=== PATIENT | female | born 1995 | race Caucasian/White ===

== ENCOUNTER 2020-04-06 11:08 | Observation (INO) | payer OTHER, SELFPAY ==
[2020-04-06 11:20] VITALS: BMI 24.1
[2020-04-06 11:25] VITALS: BP 123/78; PULSE 75
[2020-04-06 11:30] VITALS: BP 119/75; PULSE 78
[2020-04-06 12:00] VITALS: BP 118/79; PULSE 90
[2020-04-06 12:15] VITALS: BP 103/66; PULSE 80
[2020-04-06 12:20] VITALS: TEMP 37
[2020-04-06 12:30] VITALS: BP 107/63; PULSE 77
--- NOTE | 2020-04-06 12:50 | OBADM ---
This patient, Sarah George, admitted to the OB room OB Post 116 for observation. Patient/family oriented to hospital policies and general routines including ID bracelet, bed and alarms, visiting hours, pain management, procedures, bathroom and other care routines, personal items, smoking policy, room service/diet, and visiting hours. Patient/Family are encouraged to report perceived risks to care and to ask questions if they do not understand what they are told or what they should do.
--- NOTE | 2020-05-06 12:00 | PM.OBTRLD ---
OB - Triage/Final Diagnosis Final Diagnosis (1) False labor: Code(s): O47.9 - False labor, unspecified Status: Acute
== END 2020-04-06 13:00 | disposition home or self-care (01) ==
PROVIDERS: Admitting Provider Obstetrics & Gynecology; PCP Family Medicine; Visit Provider Obstetrics & Gynecology
DX: O47.1 False labor at or after 37 completed weeks of gestation (principal); Z3A.37 37 weeks gestation of pregnancy
CPT/HCPCS: G0378; G0379

== ENCOUNTER 2020-04-08 18:52 | Observation (INO) | payer OTHER, SELFPAY ==
[2020-04-08 19:00] VITALS: BMI 23.4
--- NOTE | 2020-04-08 21:03 | OBADM ---
This patient, Sarah George, admitted to the OB room Labor/Delivery/Recovery 107 for observation. Patient/family oriented to hospital policies and general routines including ID bracelet, bed and alarms, visiting hours, pain management, procedures, bathroom and other care routines, personal items, smoking policy, room service/diet, and visiting hours. Patient/Family are encouraged to report perceived risks to care and to ask questions if they do not understand what they are told or what they should do.
--- NOTE | 2020-04-13 07:32 | PM.OBTRLD ---
OB - Triage/Final Diagnosis Visit Information Date of evaluation: 04/08/20 Reason for evaluation: threatened labor
== END 2020-04-08 20:38 | disposition home or self-care (01) ==
PROVIDERS: Admitting Provider Obstetrics & Gynecology; PCP Family Medicine; Visit Provider Obstetrics & Gynecology
DX: O47.1 False labor at or after 37 completed weeks of gestation (principal); Z3A.37 37 weeks gestation of pregnancy
CPT/HCPCS: G0378; G0379

== ENCOUNTER 2020-04-21 04:55 | Inpatient (IN) | payer OTHER, SELFPAY ==
[2020-04-21] VITALS (71 sets, daily range): BP systolic 106–131; BP diastolic 57–100; PULSE 62–145; RESP 16–18; TEMP 36.6–37.3; O2SAT 100; BMI 23.8
--- NOTE | 2020-04-21 05:15 | LDADM ---
This patient, Sarah George, was admitted to Labor/Delivery/Recovery 103 on 04/21/20 at 04:55. Plans for labor, pain management and were discussed with patient. Patient/family oriented to hospital policies and general routines including ID bracelet, bed and alarms, visiting hours, pain management, procedures, bathroom and other care routines, personal items, smoking policy, room service/diet and guest tray routines, security routines, and visiting hours. Patient/Family are encouraged to report perceived risks to care and to ask questions if they do not understand what they are told or what they should do. See OBIX for further documentation.
[2020-04-21 05:31] LABS: Basophils Percent Auto 0.5 % (0.2-1.2); Eosinophils Absolute Auto 0.1 K/mm3 (0-0.3); Eosinophils Percent Auto 0.8 % (0-4.4); Hematocrit 33.3 % (37.0-47.0); Hemoglobin 11.8 g/dL (12.0-15.0); Immature Granulocyte Absolute 0.12 K/mm3 (0.00-0.031); Immature Granulocyte Percent A 1.4 % (0-0.5); Lymphocytes Absolute Auto 2.17 K/mm3 (0.9-3.2); Lymphocytes Percent Auto 24.9 % (18.3-44.2); Mean Corpuscular HGB Conc 35.4 g/dl (32-36); Mean Corpuscular Hemoglobin 32.8 pg (26-34); Mean Corpuscular Volume 92.5 fl (80-100); Mean Platelet Volume 10.6 fl (7.4-10.4); Monocytes Absolute Auto 0.6 K/mm3 (0.1-0.6); Monocytes Percent Auto 6.8 % (2.6-8.5); Neutrophils Absolute Auto 5.7 K/mm3 (1.3-6.7); Neutrophils Percent Auto 65.6 % (45.5-73.1); Platelet Count Result 162 k/mm3 (150-375); Red Cell Distribution Width 12.9 % (11.5-14.5); White Blood Count 8.7 K/mm3 (4.5-10.0)
[2020-04-21] MEDS: OXYTOCIN 30 UNITS/NS 500 ML 30 UNITS/500 ML BAG 6 UNITS IV CONT (05:33)
[2020-04-21] MEDS: LACTATED RINGERS 1,000 ML 125 ML IV CONT ×2 (05:34→09:48)
[2020-04-21 06:57] LABS: Rapid Plasma Reagin Non-Reactive (NonReactive)
--- NOTE | 2020-04-21 07:29 | WPDOBADMIT ---
Obstetrics - Admit Note Admission Note: record reviewed. No pertinent additions to the history and/or any subsequent changes in the physical findings that are not consistent with the expected course of the were found. Additions to the history and/or subsequent changes in the physical findings follow. G1 at 39+1 for induction of labor. Cervix 4/80/-1 AROM with clear fluid. GBS negative. Continue pitocin..
--- NOTE | 2020-04-21 09:18 | P.PNAN_ITS ---
Anes - Eval Pre Procedure Procedure: Labor epidural Date/Time: 04/21/20 09:18 Surgeon: Fernanda Hendrickson M.D. Preop Diagnosis: pain during labor Pre Op Diagnosis: Induction of Labor Patient Data Age: 24 Gender: F Height: 1.73 m Weight: 71 kg Last Vital Signs Temp 36.8 C 04/21/20 08:10 Pulse 72 04/21/20 09:00 BP 118/71 04/21/20 09:00 Allergies Allergy/AdvReac Type Severity Reaction Status Date / Time No Known Allergies Allergy Verified 03/28/20 12:39 Home Medications Medication Instructions Recorded Confirmed Type PNV cmb#95-ferrous fumarate-FA 1 tablet PO DAILY 03/28/20 03/28/20 History [] ferrous sulfate 325 mg PO DAILY 03/28/20 03/28/20 History Laboratory Tests 04/21/20 04/21/20 04/21/20 05:23 05:23 05:23 WBC 8.7 K/mm3 K/mm3 (4.5-10.0) RBC 3.60 M/mm3 L M/mm3 (4.2-5.4) Hgb 11.8 g/dL L g/dL (12.0-15.0) Hct 33.3 % L % (37.0-47.0) MCV 92.5 fl fl (80-100) MCH 32.8 pg pg (26-34) MCHC 35.4 g/dl g/dl (32-36) RDW 12.9 % % (11.5-14.5) Plt Count 162 k/mm3 k/mm3 (150-375) MPV 10.6 fl H fl (7.4-10.4) Immature Gran % (Auto) 1.4 % H % (0-0.5) Neut % (Auto) 65.6 % % (45.5-73.1) Lymph % (Auto) 24.9 % % (18.3-44.2) [place] % (Auto) 6.8 % % (2.6-8.5) Eos % (Auto) 0.8 % % (0-4.4) Baso % (Auto) 0.5 % % (0.2-1.2) Lymph # (Auto) 2.17 K/mm3 K/mm3 (0.9-3.2) [place] # (Auto) 0.6 K/mm3 K/mm3 (0.1-0.6) Eos # (Auto) 0.1 K/mm3 K/mm3 (0-0.3) Baso # (Auto) 0.0 K/mm3 K/mm3 (0.0-0.1) Abs Immat Gran (auto) 0.12 K/mm3 H K/mm3 (0.00-0.031) Absolute Neuts (auto) 5.7 K/mm3 K/mm3 (1.3-6.7) Absolute Nucleated RBC 0.0 K/mm3 K/mm3 (0.0-0.012) Nucleated RBC % 0.0 % % (0.0-0.2) RPR Non-reactive (NonReactive) Blood Type AB Positive Antibody Screen Negative Patient hx anesthesia problems: none Family hx anesthesia problems: none [facility] Family History Family History (Updated 03/28/20 @ 12:41 by Pallavi Dave RN) Mother Patient's mother is in good health Family history of thyroid disease Hypertension Father Patient's father is in good health Grandparent Family history of cardiovascular disease Cerebrovascular accident Diabetes mellitus Social History Social History Smoking status: Former smoker Second hand tobacco smoke exposure: No Alcohol intake: never Substance use: never Spiritual care concerns: No Exam Day of Procedure 04/21/20 09:18
--- NOTE | 2020-04-21 13:09 | PM.OBPRVD ---
OB - Delivery Note Procedure Delivery date: 04/21/20 Procedure: events: Labor Induction Intrapartal events: None Induction method: AROM and per pitocin protocol Delivery monitor: external FHT and external uterine Route of delivery: Laceration description: Periurethral - 1st Degree (right, hemostatic without sutures) Delivery repair: vicryl (3-0) Specimen: No Estimated blood loss (mL): 128 Anesthesia type: Epidural Disposition: floor Baby Date of : 04/21/20 Time of : 12:47 Weeks of gestation at delivery: 39 Infant gender: Female Weight (pounds): 8 Weight (ounces): 2 presentation: vertex position: Right Occiput Anterior Placenta delivery description: Spontaneous cord vessel description: 3 Vessels and Clamped/Cut score one minute: 7 score five minutes: 9
[2020-04-21] MEDS: OXYTOCIN 30 UNITS/NS 500 ML 30 UNITS/500 ML BAG 125 UNITS IV CONT (13:27)
--- NOTE | 2020-04-21 17:03 | PC.NURSE ---
Patient transferred to post room #284 via wheelchair from labor and delivery. Support person present. Oriented to unit, room, information board, rooming in, admission packet and security measures. Patient verbalizes understanding.
[2020-04-21] MEDS: IBUPROFEN 600 MG TABLET PO (19:18)
--- NOTE | 2020-04-21 19:35 | PC.NURSE ---
patient given orders from Dr Hendrickson to have therapeutic leave to visit infant at [facility]. IV removed at 1914. patient left with karlos to drive at 193.
[2020-04-22] MEDS: ACETAMINOPHEN 325 MG TABLET 650 MG PO (00:12)
--- NOTE | 2020-04-22 05:26 | P.DS_ITS ---
DS: Discharge Diagnosis Discharge Diagnosis (1) : Code(s): Z34.90 - Encounter for supervision of normal , unspecified, unspecified trimester Status: Acute OB - DS: Summary OB Procedures : None OB Procedures Intrapartum: Spontaneous Vag Delivery OB Procedures: : None Peripartum Data Delivery Method: Natural Vaginal Laceration description: Perineal - 2nd Degree complications: none Status at Discharge Functional status at discharge: independent ambulation Overall status at discharge: patient is progressing back to baseline Time Spent with Patient Time attestation: Total time spent providing and/or coordinating discharge services: Time spent: Less than 30 minutes DS: Data Data Completed and Pending Labs on day of discharge: Labs from last 24 hours 04/21/20 04/21/20 04/21/20 05:23 05:23 05:23 WBC 8.7 RBC 3.60 L Hgb 11.8 L Hct 33.3 L MCV 92.5 MCH 32.8 MCHC 35.4 RDW 12.9 Plt Count 162 MPV 10.6 H Immature Gran % (Auto) 1.4 H Neut % (Auto) 65.6 Lymph % (Auto) 24.9 [place] % (Auto) 6.8 Eos % (Auto) 0.8 Baso % (Auto) 0.5 Lymph # (Auto) 2.17 [place] # (Auto) 0.6 Eos # (Auto) 0.1 Baso # (Auto) 0.0 Abs Immat Gran (auto) 0.12 H Absolute Neuts (auto) 5.7 Absolute Nucleated RBC 0.0 Nucleated RBC % 0.0 RPR Non-reactive Blood Type AB Positive Antibody Screen Negative Discharge Plan Discharge Attending physician on discharge: Fernanda Hendrickson Discharging Clinician: Fernanda Hendrickson Patient Disposition: Home, Self-Care Activity: may shower and pelvic rest Diet: regular Patient Instructions: Antibiotic Form Stand Alone Forms: General Discharge Information Follow-up/Referrals: Fernanda Hendrickson MD [Physician] - 4 Weeks Discharge Medications: New ibuprofen 600 mg Tablet 600 mg PO Q6H PRN (Reason: Cramping) Qty: 60 RF: 0 Continued ferrous sulfate 325 mg (65 mg iron) Tablet 325 mg PO DAILY RF: 0 PNV cmb#95-ferrous fumarate-FA [] 28 mg iron- 800 mcg Tablet 1 tablet PO DAILY RF: 0 Date of admission: 04/21/20 04:55 Primary Care Provider: Sarahi Ureña Admitting Provider: Fernanda Hendrickson Attending physician on admission: Fernanda Hendrickson
--- NOTE | 2020-04-22 05:26 | PM.OBPNVD ---
OB - PN: Subj Subjective Date/time seen: 04/22/20 05:26 Patient comments: no complaints, pain well controlled and other (Lochia similar to menses) [place] baby status: doing well OB - PN: Obj Data Labs CBC & Chem 7: 04/21/20 05:23 Labs: Laboratory Results - last 24 hr 04/21/20 04/21/20 04/21/20 05:23 05:23 05:23 WBC 8.7 RBC 3.60 L Hgb 11.8 L Hct 33.3 L MCV 92.5 MCH 32.8 MCHC 35.4 RDW 12.9 Plt Count 162 MPV 10.6 H Immature Gran % (Auto) 1.4 H Neut % (Auto) 65.6 Lymph % (Auto) 24.9 [place] % (Auto) 6.8 Eos % (Auto) 0.8 Baso % (Auto) 0.5 Lymph # (Auto) 2.17 [place] # (Auto) 0.6 Eos # (Auto) 0.1 Baso # (Auto) 0.0 Abs Immat Gran (auto) 0.12 H Absolute Neuts (auto) 5.7 Absolute Nucleated RBC 0.0 Nucleated RBC % 0.0 RPR Non-reactive Blood Type AB Positive Antibody Screen Negative OB - PN A/P Plan day: 1 (s/p vaginal delivery, doing well) Plan: routine care and discharge home (Follow up in 4 weeks) Time Spent With Patient Time: Total time spent is greater than 50% in coordination of care (as documented) at patient's floor/unit and/or counseling patient: Time with patient: less than 15 minutes Exam Const: General: no acute distress GI: Inspection: other (Fundus firm and nontender at umbilicus) GI Palp: Yes Soft to palpation and No Tenderness to palpation present (GI) Extrem: General: no edema
[2020-04-22 06:02] LABS: Hematocrit 30.1 % (37.0-47.0); Hemoglobin 10.4 g/dL (12.0-15.0)
[2020-04-22 08:05] VITALS: BP 118/77; PULSE 89; RESP 18; TEMP 37.2; O2SAT 99
--- NOTE | 2020-04-22 08:45 | WPDANLDPN2 ---
Anes-Prog Note L&D Date/Time: 04/22/20 08:45 Comfortable throughout: labor and delivery Neuraxial method: epidural Epidural/Spinal procedure site: clean & non-tender Neuro status: Neuro function grossly intact. Cardiovascular status: normal Respiratory status: normal Airway patency: baseline Mental status: baseline Post-Op hydration status: normal Vital Signs: Last Vital Signs Temp 97.9 F 04/21/20 19:00 Pulse 67 04/21/20 19:00 Resp 16 04/21/20 19:00 BP 107/71 04/21/20 19:00 Pulse Ox 100 04/21/20 19:00 Patient feedback: Patient satisfied with anesthetic care.
[2020-04-22] MEDS: MULTIVIT/MIN/PREN/FOL AC/IRON TABLET 1 TAB PO (09:16)
[2020-04-22] MEDS: TETANUS,DIPHTHERIA,AC PERTUSSIS ADULT (0.5 ML) BOOSTRIX IM (09:16)
[2020-04-22] MEDS: IBUPROFEN 600 MG TABLET PO (09:16)
--- NOTE | 2020-04-22 09:20 | PC.NURSE ---
Patient instructed to view the discharge video Mother & Baby Care, The First Two Weeks . Patient was given the opportunity and encouraged to ask questions. Patient verbalized understanding of information shared and has been given the mother/baby guide for home reference.
--- NOTE | 2020-04-22 09:30 | PC.NURSE ---
Consult with pt., mother is pumping due to transfer. Reviewed instructions on breast pump care and usage, pumping schedule, nipple care, and collection and storage of breast milk. Encouraged [id number], breast massage and manual expression to stimulate supply. Pumping log provided and reviewed. Assessed patient for correct flange size, placement and draw. Patient verbalizes and demonstrates understanding of instructions. Assisted with pump rental and script for mother to obtain a pump thru her insurance.
== END 2020-04-22 09:43 | disposition home or self-care (01) | DRG 807 ==
LOC: ANHLDR 05:01 → ANHOB2 17:07
PROVIDERS: Admitting Provider Obstetrics & Gynecology; PCP Family Medicine; Visit Provider Obstetrics & Gynecology
DX: O32.6XX0 Maternal care for compound presentation, not applicable or unspecified (principal); Z37.0 Single live birth; Z3A.39 39 weeks gestation of pregnancy; O70.1 Second degree perineal laceration during delivery
CPT/HCPCS: 36415; 85014; 85018; 85025; 86592; 86850; 86900; 86901; 90715; A9270; J2590; J2795; J7120

== ENCOUNTER 2023-01-23 10:51 | Outpatient (RCR) | payer OTHER, SELFPAY ==
[2023-01-23 11:44] LABS: Basophils Percent Auto 0.5 % (0.2-1.2); Eosinophils Percent Auto 0.3 % (0-4.4); Hematocrit 38.7 % (37.0-47.0); Immature Granulocyte Absolute 0.02 K/mm3 (0.00-0.031); Immature Granulocyte Percent A 0.3 % (0-0.5); Lymphocytes Absolute Auto 1.55 K/mm3 (0.9-3.2); Lymphocytes Percent Auto 26.8 % (18.3-44.2); Mean Corpuscular HGB Conc 33.6 g/dl (32-36); Mean Corpuscular Volume 92.4 fl (80-100); Mean Platelet Volume 11.7 fl (7.4-10.4); Monocytes Absolute Auto 0.4 K/mm3 (0.1-0.6); Monocytes Percent Auto 6.4 % (2.6-8.5); Neutrophils Absolute Auto 3.8 K/mm3 (1.3-6.7); Neutrophils Percent Auto 65.7 % (45.5-73.1); Platelet Count Result 159 k/mm3 (150-375); Red Blood Count 4.19 M/mm3 (4.2-5.4); Red Cell Distribution Width 12.1 % (11.5-14.5); White Blood Count 5.8 K/mm3 (4.5-10.0)
[2023-01-23 12:34] LABS: HIV 1/2 Ab P24 Ag Result Negative (Negative)
[2023-01-23 13:05] LABS: Hepatitis B Surface Antigen Negative (Negative); Rubella IgG Antibody 15.6 IU/ML
[2023-01-23 14:17] LABS: Rapid Plasma Reagin Non-Reactive (NonReactive)
== END 2023-04-23 23:59 | disposition home or self-care (01) ==
LOC: ANHLAB 10:51
PROVIDERS: PCP Family Medicine; Visit Provider Student in an Organized Health Care Education/Training Program
DX: Z11.4 Encounter for screening for human immunodeficiency virus [HIV] (principal); O36.0190 Maternal care for anti-D [Rh] antibodies, unspecified trimester, not applicable or unspecified; Z3A.00 Weeks of gestation of pregnancy not specified
CPT/HCPCS: 36415; 84702; 85025; 86592; 86644; 86703; 86747; 86762; 86787; 86850; 86900; 86901; 87086; 87340; G0432

== ENCOUNTER 2023-02-07 01:26 | Day surgery (SDC) | payer OTHER, SELFPAY ==
[2023-02-04 12:02] VITALS: BMI 22.4
--- NOTE | 2023-02-04 12:04 | PC.NURSE ---
Report to the Outpatient Waiting Room, entrance under the green pavilion located off [facility], at time 1230 on date 02/07/23. Planned Procedure Time: 1430. Time changes happen often and if your time is changed the preop area will call you the afternoon before. - You and your visitor will be asked to self-screen and do not enter if you have any COVID symptoms. - A mask is optional within the hospital at this time. Patients may have clear liquids (water, carbonated beverages, clear teas, apple juice) until 3 hours prior to surgery with a maximum of 20 ounces. - No food from midnight until time of surgery - Infants may have breast milk until 4 hours before surgery, infant formula 6 hours prior to surgery. - Children will be allowed to drink immediately following surgery. If applicable, please bring a bottle or sippy cup to assist with drinking. Juice, water, soda, and popsicles are readily available. For infants on formula, please bring formula the day of surgery. Pacifiers are allowed. Take the following medications with a SIP of water the morning of surgery: N/A DO NOT STOP ANY OF YOUR OTHER PRESCRIPTION MEDICATIONS PRIOR TO SURGERY?EXCEPT THE FOLLOWING Medications to discontinue per physician: N/A Date to take last dose: N/A Please no make-up, nail [place], hairspray, perfume, deodorant, or body powder the day of surgery. No jewelry (including any body piercings) or valuables the day of surgery, leave them at home. Please take a shower or bath the night before, or the morning of, surgery with an antibacterial soap. Wear comfortable, loose fitting clothing. - Jewelry must be removed prior to entering the operating room. Rings and piercings that are not removed may be cut off. - The hospital will not accept responsibility for valuables. - Please leave all valuables, including medications, at home the day of surgery. If you are going home after surgery, a licensed regional tanker truck driver must drive you home. - NO public transportation without another adult if you receive anesthesia. - We recommend that an adult stay with you for 24 hours following discharge. - We also recommend that you do not drive, make important decision, drink alcoholic beverages, or take any drugs that were not prescribed by your health care provider for at least 24 hours after your discharge time. Follow any additional instructions given to you from your surgeon. If you or anyone in your household have experienced Covid symptoms in the past week, please notify your surgeon or the nurse liaison at the phone number below for possible testing. Telephone instructions given to PT - DENA JAMES and asked if any additional questions and then verbalized understanding. Patient advised to call surgeon office or pre surgery nurse liaison [phone] if any additional questions.
--- NOTE | 2023-02-06 15:09 | WPDANESEPPF ---
Anes - Initial Pre Proc Eval Procedure: Operation Date: 02/07/23 13:00 Proposed Procedures p Suction Dilation and Curettage - Marcus Tripp MD Date/Time: 02/06/23 15:09 Surgeon: Marcus Tripp MD Pre Op Diagnosis: Missed Ab Patient Data Age: 27 Gender: F Height: 1.73 m Weight: 67 kg Allergies Allergy/AdvReac Type Severity Reaction Status Date / Time No Known Allergies Allergy Verified 02/07/23 11:14 Home Medications Medication Instructions Recorded Confirmed Type No Home Medications 02/04/23 02/07/23 History Patient hx anesthesia problems: none Family hx anesthesia problems: none Results Review: All pre-operative results and documents have been reviewed as part of the pre-operative evaluation. [facility] Past Medical History Medical History Vaginal delivery 04/21/20 Female full-term 8lbs 2oz Surgical History Surgical History [place] teeth removed Family History Family History Mother Patient's mother is in good health Family history of thyroid disease Hypertension Father Patient's father is in good health Grandparent Family history of cardiovascular disease Cerebrovascular accident Diabetes mellitus Social History Social History (Updated 01/23/23 @ 09:00 by Zandra Arias CMA) Smoking status: Never smoker Second hand tobacco smoke exposure: No Alcohol intake: never Substance use: never Substance use type: does not use Living arrangements: with family Occupation/Education: occupation Gender identity (if verbalized by the patient): Female Sexual Orientation (if Verbalized by the Patient): Straight or Heterosexual Spiritual care concerns: No Anes - Eval Final PreProcedure Day of Procedure 02/06/23 15:09 Patient weight: normal Heart: regular rate and rhythm Lungs: clear to auscultation and normal air movement Airway: Mallampati scale class II Neurological: alert and oriented Last oral intake: >/= 8 hours ASA classification: I Emergent: no Anesthetic plan: proceed Anesthesia type and monitoring: general GIVS and LMA Results Review: All pre-operative results and documents have been reviewed as part of the pre-operative evaluation. Informed Consent: The patient's anesthetic plan and its attendant risks and benefits were discussed with the patient/family/POA. Questions were solicited and answers provided to the satisfaction of the patient/family/POA.
--- NOTE | 2023-02-07 07:52 | PM.IMHP ---
H&P: HPI History of Present Illness Date/Time: 02/07/23 07:52 Chief Complaint: spontaneous missed Narrative: a 27-year-old female who presents for suction removing her management and spontaneous missed . Patient was found to have no cardiac activity a viability ultrasound patient have a follow-up scan 1 week later which showed no interval growth louis min no guarding and patient has had no bleeding or pain. Patient was given management options and elected for surgical management. The Review of Systems Review of Systems: All systems reviewed & are unremarkable except as noted in HPI and below PMFSH Past Medical History Medical History Vaginal delivery 04/21/20 Female full-term 8lbs 2oz Surgical History Surgical History [place] teeth removed Family History Family History Mother Patient's mother is in good health Family history of thyroid disease Hypertension Father Patient's father is in good health Grandparent Family history of cardiovascular disease Cerebrovascular accident Diabetes mellitus Social History Social History (Updated 01/23/23 @ 09:00 by Zandra Arias CMA) Smoking status: Never smoker Second hand tobacco smoke exposure: No Alcohol intake: never Substance use: never Substance use type: does not use Living arrangements: with family Occupation/Education: occupation Gender identity (if verbalized by the patient): Female Sexual Orientation (if Verbalized by the Patient): Straight or Heterosexual Spiritual care concerns: No Meds Home Medications and Allergies Home Medications Medication Instructions Recorded Confirmed Type No Home Medications 02/04/23 02/04/23 History Allergies Allergy/AdvReac Type Severity Reaction Status Date / Time No Known Allergies Allergy Verified 02/04/23 12:01 Exam Const: General: comfortable and no acute distress Resp: Effort & Inspection: normal respiratory effort Auscultation: clear to auscultation bilaterally Cardio: Rate: regular rate Rhythm: regular rhythm GI: Inspection: non-distended GI Palp: Yes Soft to palpation, No Tenderness to palpation present (GI) and No Guarding due to palpation present (GI) Auscultation: normal bowel sounds : External Female Exam: normal external appearance Speculum Exam - Vagina: normal appearance of the vagina Speculum Exam - Cervix: normal appearance of the cervix, Cervical os closed, Abnormal cervical discharge present and nontender Bimanual exam- vagina & uterus: normal bimanual exam, No Cervical tenderness present and non-tender Bimanual Exam- Adnexa, other: normal adnexae OB/external & speculum: no bleeding Skin: General skin exam: normal color Neuro: General: gait normal Speech: normal speech Extrem: General: normal to inspection Psych: Mental Status: mental status grossly normal Affect: normal affect Assessment and Plan Assessment and plan (1) Missed : Code(s): O02.1 - Missed Status: Acute Assessment and Plan: 27-year-old female for suction D&C for management of spontaneous missed patient presented for viability ultrasound. Ultrasound showed pole no cardiac activity Patient had follow-up ultrasound in 1 week which showed no interval growth and again no cardiac activity Patient has no bleeding, pain, cramping Discussed management options with patient Patient opted for surgical management via suction D&C Rh positive, no need for RhoGAM
--- NOTE | 2023-02-07 07:55 | WPDHPUPDATE1 ---
History and Physical Update Update Date/Time: 02/07/23 07:55 History and Physical has been reviewed, including an updated exam of the patient. There are NO changes in the patient's condition. Risks, benefits, and alternatives have been discussed and questions answered. Patient agrees to proceed with procedure.
[2023-02-07 11:05] VITALS: BP 115/76; PULSE 76; RESP 14; TEMP 37.3; O2SAT 100
[2023-02-07 11:15] VITALS: BMI 22.5
[2023-02-07] MEDS: LACTATED RINGERS 1,000 ML 30 ML IV CONT (11:20)
[2023-02-07] MEDS: ACETAMINOPHEN 500 MG TABLET 1000 MG PO (11:28)
[2023-02-07] MEDS: DOXYCYCLINE 100 MG/NS 100 ML 100 MG/100 ML BAG IVPB (12:02)
--- NOTE | 2023-02-07 14:07 | W.PM.PROC2 ---
Procedure Note - Detailed Date of Procedure 02/07/23 Pre-op Diagnosis Missed Ab Post-op Diagnosis Same Procedure Performed Suction Dilation & curettage Surgeon Marcus Tripp MD Anesthesia General Indications spontaneous missed on pelvic US Findings intrauterine products of conception Description of Procedure The patient was taken to the operating room after a missed had been noted on on transvaginal ultrasound. The risks, benefits and alternatives of the procedure were reviewed with the patient and informed consent was obtained. The patient was taken to the OR and anesthesia was noted to be adequate. The patient was placed in the dorsolithotomy position. Pelvic exam was performed with findings noted above. The patient was prepped and draped in the usual sterile fashion. Sterile speculum was placed in the vagina and the cervix was grasped with a tenaculum. The cervix was dilated further to allow for passage of a 8 mm suction curette. The 8 mm suction curette was gently advanced to the fundus, suction was activated, and the tip was rotated while being withdrawn to clear the uterus of products. This suction process was repeated 3 additional times due to the quantity of material in the uterus. The sharp curette was introduced and advanced to the fundus to remove any remaining products. The suction curette was reintroduced one final time to ensure all products had been removed. The tenaculum was removed. Good hemostasis was noted. Instrument, sponge, and sharp counts were correct. Patient tolerated the procedure well and was taken to the recovery room in stable condition. Estimated Blood Loss 5 Urine Output 25 Drains No Packing No Pathology Yes (products of conception ) Complications No immediate complications Condition Stable Disposition PACU [facility] Billing Surgery - Charge Forward: Surgery Billing
[2023-02-07 14:10] VITALS: BP 105/63; PULSE 76; RESP 12; O2SAT 100
[2023-02-07 14:40] VITALS: BP 101/66; PULSE 65; RESP 12; O2SAT 100
== END 2023-02-07 15:05 | disposition home or self-care (01) ==
PROVIDERS: PCP Family Medicine; Visit Provider Student in an Organized Health Care Education/Training Program
PROC: (CPT 59820; principal; 2023-02-07 13:00)
DX: O02.1 Missed abortion (principal); Z3A.00 Weeks of gestation of pregnancy not specified
CPT/HCPCS: 59820; 88305; A9270; J2250; J2704; J3010; J7120

== ENCOUNTER 2023-02-21 11:07 | Outpatient (CLI) | payer OTHER, SELFPAY | END 2023-02-21 11:08 | disposition home or self-care (01) | LOC: ANHLAB 11:08 | PROVIDERS: PCP Family Medicine; Visit Provider Student in an Organized Health Care Education/Training Program | DX: O02.1 Missed abortion (principal) | CPT/HCPCS: 36415; 84702 ==

== ENCOUNTER 2023-03-01 12:33 | Outpatient (CLI) | payer OTHER, SELFPAY | END 2023-03-01 12:34 | disposition home or self-care (01) | LOC: ANHLAB 12:34 | PROVIDERS: PCP Family Medicine; Visit Provider Student in an Organized Health Care Education/Training Program | DX: O02.1 Missed abortion (principal) | CPT/HCPCS: 36415; 84702 ==

== ENCOUNTER 2023-09-24 08:31 | Outpatient (CLI) | payer OTHER, SELFPAY ==
[2023-09-24 09:05] LABS: Basophils Percent Auto 0.8 % (0.2-1.2); Eosinophils Percent Auto 0.8 % (0-4.4); Hematocrit 35.8 % (37.0-47.0); Hemoglobin 11.9 g/dL (12.0-15.0); Immature Granulocyte Absolute 0.01 K/mm3 (0.00-0.031); Immature Granulocyte Percent A 0.2 % (0-0.5); Lymphocytes Absolute Auto 1.48 K/mm3 (0.9-3.2); Lymphocytes Percent Auto 31.4 % (18.3-44.2); Mean Corpuscular HGB Conc 33.2 g/dl (32-36); Mean Corpuscular Hemoglobin 30.2 pg (26-34); Mean Corpuscular Volume 90.9 fl (80-100); Mean Platelet Volume 9.6 fl (7.4-10.4); Monocytes Absolute Auto 0.4 K/mm3 (0.1-0.6); Monocytes Percent Auto 7.9 % (2.6-8.5); Neutrophils Absolute Auto 2.8 K/mm3 (1.3-6.7); Neutrophils Percent Auto 58.9 % (45.5-73.1); Platelet Count Result 214 k/mm3 (150-375); Red Blood Count 3.94 M/mm3 (4.2-5.4); Red Cell Distribution Width 11.8 % (11.5-14.5); White Blood Count 4.7 K/mm3 (4.5-10.0)
[2023-09-24 10:01] LABS: HIV 1/2 Ab P24 Ag Result Negative (Negative)
[2023-09-24 10:18] LABS: Hepatitis B Surface Antigen Negative (Negative)
[2023-09-25 10:49] LABS: Rapid Plasma Reagin Non-Reactive (NonReactive)
== END 2023-09-24 08:32 | disposition home or self-care (01) ==
PROVIDERS: PCP Family Medicine; Visit Provider Obstetrics & Gynecology
DX: N91.2 Amenorrhea, unspecified (principal)
CPT/HCPCS: 36415; 84702; 85025; 86592; 86644; 86703; 86747; 86762; 86787; 86850; 86900; 86901; 87077; 87086; 87186; 87340; G0432

== ENCOUNTER 2023-12-31 14:28 | Outpatient (CLI) | payer OTHER, SELFPAY ==
[2023-12-31 19:23] LABS: Free T4 Free Thyroxine 0.88 ng/mL (0.78-2.19)
[2023-12-31 19:24] LABS: Thyroid Stimulating Hormone 0.906 uIU/mL (0.465-4.680)
[2024-01-03 05:30] LABS: Thyroid Peroxidase Antibodies <1 IU/mL (<9)
== END 2023-12-31 14:29 | disposition home or self-care (01) ==
LOC: ANHBWCLAB 14:29
PROVIDERS: PCP Nurse Practitioner Adult Health; Visit Provider Nurse Practitioner Adult Health
DX: E04.9 Nontoxic goiter, unspecified (principal)
CPT/HCPCS: 36415; 84439; 84443; 86376

== ENCOUNTER 2024-01-10 12:45 | Outpatient (CLI) | payer OTHER, SELFPAY ==
--- NOTE | ~2024-01-10 | US_ITS ---
US thyroid INDICATION: Nontoxic goiter TECHNIQUE: Real-time sonographic images of the thyroid gland were obtained. COMPARISON: No prior studies for comparison. FINDINGS: The right thyroid lobe measures 5.8 x 1.9 x 1.5 cm. The left thyroid lobe measures 5 x 1.4 x 1.5 cm. There is normal echotexture and echogenicity throughout the thyroid gland. There are small subcentimeter benign cysts of the left thyroid lobe. Normal vascular flow is present. IMPRESSION: 1. Unremarkable thyroid without suspicious nodule or abnormal vascularity. Reviewed, dictated and finalized at location A.
== END 2024-01-10 12:46 ==
LOC: GOSHIMG 12:46
PROVIDERS: PCP Nurse Practitioner Adult Health; Visit Provider Nurse Practitioner Adult Health
DX: E04.9 Nontoxic goiter, unspecified (principal)
CPT/HCPCS: 76536

== ENCOUNTER 2024-02-18 08:12 | Outpatient (CLI) | payer OTHER, SELFPAY ==
[2024-02-18 09:50] LABS: Basophils Percent Auto 0.4 % (0.2-1.2); Eosinophils Percent Auto 0.6 % (0-4.4); Hematocrit 33.5 % (37.0-47.0); Immature Granulocyte Absolute 0.03 K/mm3 (0.00-0.031); Immature Granulocyte Percent A 0.4 % (0-0.5); Lymphocytes Percent Auto 17.8 % (18.3-44.2); Mean Corpuscular HGB Conc 32.8 g/dl (32-36); Mean Corpuscular Hemoglobin 31.4 pg (26-34); Mean Corpuscular Volume 95.7 fl (80-100); Mean Platelet Volume 10.2 fl (7.4-10.4); Monocytes Absolute Auto 0.4 K/mm3 (0.1-0.6); Monocytes Percent Auto 6.2 % (2.6-8.5); Neutrophils Percent Auto 74.6 % (45.5-73.1); Platelet Count Result 181 k/mm3 (150-375); Red Cell Distribution Width 12.8 % (11.5-14.5); White Blood Count 6.8 K/mm3 (4.5-10.0)
[2024-02-18 10:08] LABS: Glucose 1 Hour PP 50gm Dose 57 mg/dL
[2024-02-18 10:39] LABS: HIV 1/2 Ab P24 Ag Result Negative (Negative)
== END 2024-02-18 08:13 | disposition home or self-care (01) ==
LOC: ANHLAB 08:14
PROVIDERS: PCP Nurse Practitioner Adult Health; Visit Provider Obstetrics & Gynecology
DX: Z34.90 Encounter for supervision of normal pregnancy, unspecified, unspecified trimester (principal)
CPT/HCPCS: 36415; 82947; 85025; 86703; G0432

== ENCOUNTER 2024-03-10 20:39 | Emergency (ER) | payer OTHER, SELFPAY ==
--- NOTE | ~2024-03-10 | XR_ITS ---
EXAMINATION: XR chest 1V portable Exam Date/Time: 03/10/2024 22:30 CDT HISTORY: increasing cough congestion pt 31 weeks preg and shielded Comparison: None. RESULT: Lines, tubes, and devices: None. Lungs and pleura: Segmental consolidation in the left lower lung. Cardiomediastinal silhouette: Stable. Other: No acute osseous or upper abdominal finding. IMPRESSION: Segmental left lower lobe consolidation concerning for pneumonia. Reviewed, dictated and finalized at location K.
[2024-03-10 20:41] VITALS: BP 129/83; PULSE 121; RESP 18; TEMP 36.6; O2SAT 100
--- NOTE | 2024-03-10 22:29 | ECG_ITS ---
SEE SCANNED COPY FOR CONFIRMED REPORT MTDD
--- NOTE | 2024-03-10 22:29 | ED.GENADULT ---
HPI - General Adult General Chief complaint: Upper Respiratory Infection Stated complaint: uri Time Seen by Provider: 03/10/24 21:48 Source: patient Mode of arrival: ambulatory Limitations: no limitations History of Present Illness HPI narrative: This is a 28-year-old female who is , approximately 31 weeks who presents to the ED for chief complaint of URI sxs for 1 week. Reports she has been on azithromycin for the past 3 days and still has increasing cough. She reports she is unable to bring anything up with the cough but feels like she needs to. Also endorses dyspnea. Reports an episode of chest tightness/pain last week but none today. Denies fevers, chills, nausea, vomiting, abdominal pain. Related Data Home Medications Medication Instructions Recorded Confirmed docosahexaenoic acid 200 mg mg PO 10/23/23 03/09/24 capsule ( DHA) Allergies Allergy/AdvReac Type Severity Reaction Status Date / Time No Known Allergies Allergy Verified 03/10/24 21:51 Review of Systems Review of Systems: All systems as dictated in [facility] Past Medical History Medical History Vaginal delivery 04/21/20 Female full-term 8lbs 2oz Surgical History Surgical History [place] teeth removed Family History Family History Mother Patient's mother is in good health Family history of thyroid disease Hypertension Grandparent Family history of cardiovascular disease Cerebrovascular accident Diabetes mellitus Unknown Asthma Social History Social History Smoking status: Never smoker Second hand tobacco smoke exposure: No Alcohol intake: current Alcohol use details: rarely-every 6 months Substance use: never Substance use type: does not use Lack of Transportation: No Lack of Food: Never True Current Housing: I Have Housing Concerned About Future Housing: No Difficulty Paying Gas/Electric Bills: No Difficulty Paying for Meds: No Currently Unemployed: No Education: Trade/Vocational Certificate Difficulty w/ Childcare or Family Care: No Living arrangements: with family Additional living arrangements comments: Occupation/Education: occupation Additional occupation/education comments: hairstylist Gender identity (if verbalized by the patient): Female Sexual Orientation (if Verbalized by the Patient): Straight or Heterosexual Spiritual care concerns: No Exam Narrative: GENERAL: Well-appearing, well-nourished, and in no acute distress. HEAD: Normocephalic, atraumatic. EYES: PERRLA and EOMI. ENT: Nares clear, no rhinorrhea or epistaxis. Mucous membranes moist. Oropharynx without tonsillar hypertrophy exudate or other lesions. NECK: Supple. No adenopathy or masses. CHEST: No respiratory distress. Clear to auscultation. No wheezes rales or rhonchi. 100% room air. Repeatedly coughing on exam. HEART: Tachycardic rate and regular rhythm. No murmur heard. Normal peripheral pulses. ABDOMEN: Soft, nontender, nondistended, normal active bowel sounds. MSK: Normal range of motion. No edema. SKIN: Warm, dry, no rash. NEURO: Alert and oriented x3. No focal deficits. PSYCH: Normal mood and affect. Course Consultations Consultation #1: Consult Dr. Vinson: We discussed the results of the imaging and laboratory workup today. I advised that I am comfortable sending patient home if he is RI with this. We agreed to have her start on Augmentin for additional antibiotic coverage on top the azithromycin. He would like for her to call the office 1st thing in the morning so they can see her as well. Date: 03/10/24 Time: 23:41 Vital Signs Vital signs: Vital Signs Temperature 97.8 F 03/10/24 20:41 Pulse Rate 121 H
[2024-03-10 23:07] LABS: Basophils Percent Auto 0.4 % (0.2-1.2); Eosinophils Percent Auto 0.2 % (0-4.4); Hemoglobin 10.7 g/dL (12.0-15.0); Immature Granulocyte Absolute 0.05 K/mm3 (0.00-0.031); Immature Granulocyte Percent A 0.6 % (0-0.5); Lymphocytes Absolute Auto 1.09 K/mm3 (0.9-3.2); Lymphocytes Percent Auto 12.3 % (18.3-44.2); Mean Corpuscular HGB Conc 34.5 g/dl (32-36); Mean Corpuscular Hemoglobin 31.2 pg (26-34); Mean Corpuscular Volume 90.4 fl (80-100); Monocytes Absolute Auto 0.6 K/mm3 (0.1-0.6); Monocytes Percent Auto 6.5 % (2.6-8.5); Neutrophils Absolute Auto 7.1 K/mm3 (1.3-6.7); Platelet Count Result 214 k/mm3 (150-375); Red Blood Count 3.43 M/mm3 (4.2-5.4); Red Cell Distribution Width 12.6 % (11.5-14.5); White Blood Count 8.9 K/mm3 (4.5-10.0)
[2024-03-10 23:21] LABS: Lactic Acid Reflex 0.9 mmol/L (0.7-2.0)
[2024-03-10 23:35] LABS: Alanine Aminotransferase 22 U/L (6-35); Albumin Level 3.2 g/dL (3.5-5.1); Alkaline Phosphatase 98 U/L (38-126); Anion Gap 6 mmol/L (4-12); Aspartate Amino Transferase 24 U/L (14-36); Blood Urea Nitrogen 6 mg/dL (7-17); CRP 18.5 mg/dL (<1.0); Calcium 8.2 mg/dL (8.4-10.2); Carbon Dioxide 23 mmol/L (22-30); Chloride 104 mmol/L (98-107); Estimated CRCL calculation 137 ml/min; Estimated Glomerular Filt Rate > 60; Glucose 123 mg/dL (65-110); Sodium 133 mmol/L (137-145)
[2024-03-10] MEDS: SODIUM CHLORIDE 0.9% IV 1,000 ML 999 ML IV CONT (23:42)
[2024-03-10 23:48] VITALS: BP 120/72; PULSE 100; RESP 14; O2SAT 99
[2024-03-10 23:48] LABS: Influenza A QL RT-PCR Positive (Negative); Influenza B QL RT-PCR Negative (Negative); RSV RNA, RT-PCR Negative (Negative); SARS-CoV-2 RNA PCR Negative (Negative)
== END 2024-03-11 00:48 | disposition home or self-care (01) ==
PROVIDERS: Emergency Provider Physician Assistant; PCP Nurse Practitioner Adult Health
DX: O99.513 Diseases of the respiratory system complicating pregnancy, third trimester (principal); J11.00 Influenza due to unidentified influenza virus with unspecified type of pneumonia; Z3A.31 31 weeks gestation of pregnancy; Z20.822 Contact with and (suspected) exposure to COVID-19
CPT/HCPCS: 36415; 71045; 80053; 83605; 85025; 86140; 87637; 93005; 96361; 96365; 99284; J0696; J7030

== ENCOUNTER 2024-05-04 06:02 | Inpatient (IN) | payer OTHER, SELFPAY ==
[2024-05-04] VITALS (95 sets, daily range): BP systolic 99–139; BP diastolic 60–108; PULSE 25–176; RESP 16–18; TEMP 36.9–37.6; O2SAT 73–100
[2024-05-04 07:00] LABS: Basophils Absolute Auto 0.1 K/mm3 (0.0-0.1); Basophils Percent Auto 0.7 % (0.2-1.2); Eosinophils Percent Auto 0.6 % (0-4.4); Hematocrit 31.7 % (37.0-47.0); Hemoglobin 10.7 g/dL (12.0-15.0); Immature Granulocyte Absolute 0.04 K/mm3 (0.00-0.031); Immature Granulocyte Percent A 0.6 % (0-0.5); Lymphocytes Absolute Auto 1.79 K/mm3 (0.9-3.2); Lymphocytes Percent Auto 24.9 % (18.3-44.2); Mean Corpuscular HGB Conc 33.8 g/dl (32-36); Mean Corpuscular Hemoglobin 30.5 pg (26-34); Mean Corpuscular Volume 90.3 fl (80-100); Mean Platelet Volume 11.2 fl (7.4-10.4); Monocytes Absolute Auto 0.4 K/mm3 (0.1-0.6); Neutrophils Absolute Auto 4.8 K/mm3 (1.3-6.7); Neutrophils Percent Auto 67.2 % (45.5-73.1); Platelet Count Result 167 k/mm3 (150-375); Red Blood Count 3.51 M/mm3 (4.2-5.4); Red Cell Distribution Width 13.4 % (11.5-14.5); White Blood Count 7.2 K/mm3 (4.5-10.0)
[2024-05-04] MEDS: OXYTOCIN 30 UNITS/NS 500 ML 30 UNITS/500 ML BAG IV CONT (07:07)
[2024-05-04] MEDS: LACTATED RINGERS 1,000 ML 125 ML IV CONT ×2 (07:07→12:51)
[2024-05-04 07:52] LABS: HIV 1/2 Ab P24 Ag Result Negative (Negative)
--- NOTE | 2024-05-04 09:28 | WPDHPUPDATE1 ---
History and Physical Update Update Date/Time: 05/04/24 09:28 28-year-old 011 who presents at 39 weeks 1 day for elective induction of labor History and Physical has been reviewed, including an updated exam of the patient. There are NO changes in the patient's condition. Risks, benefits, and alternatives have been discussed and questions answered. Patient agrees to proceed with procedure. A/P: admit to L&D routine admission orders Rh+ GBS neg plan for AROM and pitocin augmentation continuous EFM
--- NOTE | 2024-05-04 13:05 | WPDANESEPP ---
Anes - Eval Pre Procedure Procedure: labor epidural Date/Time: 05/04/24 13:05 Surgeon: Qasim Preop Diagnosis: Pain during labor Pre Op Diagnosis: IOL Patient Data Age: 28 Gender: F Height: Weight: Last Vital Signs Temp 37.2 C 05/04/24 08:38 Pulse 90 05/04/24 11:01 BP 99/73 L 05/04/24 11:01 Pulse Ox 100 05/04/24 13:04 O2 Del Method Room Air 05/04/24 06:48 Allergies Allergy/AdvReac Type Severity Reaction Status Date / Time No Known Allergies Allergy Verified 04/29/24 09:30 Home Medications Medication Instructions Recorded Confirmed Type vit no.95-ferrous 1 tablet PO DAILY 05/04/24 05/04/24 History fumarate 28 mg-folic acid 800 mcg tablet () Laboratory Tests 05/04/24 06:25 WBC 7.2 K/mm3 (4.5-10.0) RBC 3.51 L M/mm3 (4.2-5.4) Hgb 10.7 L g/dL (12.0-15.0) Hct 31.7 L % (37.0-47.0) MCV 90.3 fl (80-100) MCH 30.5 pg (26-34) MCHC 33.8 g/dl (32-36) RDW 13.4 % (11.5-14.5) Plt Count 167 k/mm3 (150-375) MPV 11.2 H fl (7.4-10.4) Immature Gran % (Auto) 0.6 H % (0-0.5) Neut % (Auto) 67.2 % (45.5-73.1) Lymph % (Auto) 24.9 % (18.3-44.2) Mineral % (Auto) 6.0 % (2.6-8.5) Eos % (Auto) 0.6 % (0-4.4) Baso % (Auto) 0.7 % (0.2-1.2) Lymph # (Auto) 1.79 K/mm3 (0.9-3.2) Mineral # (Auto) 0.4 K/mm3 (0.1-0.6) Eos # (Auto) 0.0 K/mm3 (0-0.3) Baso # (Auto) 0.1 K/mm3 (0.0-0.1) Abs Immat Gran (auto) 0.04 H K/mm3 (0.00-0.031) Absolute Neuts (auto) 4.8 K/mm3 (1.3-6.7) Absolute Nucleated RBC 0.000 K/mm3 (0.0-0.012) Nucleated RBC % 0.0 % (0.0-0.2) RPR Pending HIV 1&2 Ab/P24 Ag 4thGn Negative (Negative) Blood Type AB Positive Antibody Screen Negative Patient hx anesthesia problems: none Family hx anesthesia problems: none Results Review: All pre-operative results and documents have been reviewed as part of the pre-operative evaluation. [facility] Past Medical History Medical History Vaginal delivery 04/21/20 Female full-term 8lbs 2oz Surgical History Surgical History [place] teeth removed Family History Family History Mother Patient's mother is in good health Family history of thyroid disease Hypertension Grandparent Family history of cardiovascular disease Cerebrovascular accident Diabetes mellitus Unknown Asthma Social History Social History Smoking status: Never smoker Second hand tobacco smoke exposure: No Alcohol intake: former Alcohol use details: rarely-every 6 months Substance use: never Substance use type: does not use Do You Feel Safe in your Home?: Yes Lack of Transportation: No Lack of Food: Never True Current Housing: I Have Housing Concerned About Future Housing: No Difficulty Paying Gas/Electric Bills: No Difficulty Paying for Meds: No Currently Unemployed: No Education: Trade/Vocational Certificate Difficulty w/ Childcare or Family Care: No Living arrangements: with family Additional living arrangements comments: Occupation/Education: occupation Additional occupation/education comments: [email or web address] Gender identity (if verbalized by the patient): Female Sexual Orientation (if Verbalized by the Patient): Straight or Heterosexual Spiritual care concerns: No Exam Day of Procedure 05/04/24 13:05 Patient weight: normal Heart: regular rate and rhythm Lungs: normal air movement Airway: Mallampati scale class II Neurological: alert and oriented
[2024-05-04] MEDS: miSOPROStol 200 MCG TABLET 1000 MCG RECTAL (16:24)
--- NOTE | 2024-05-04 16:37 | P.PCNOB_ITS ---
OB - Vaginal Delivery Note Procedure Delivery date: 05/04/24 Induction method: Per Pitocin Protocol Delivery augmentation: Rupture of Membranes Delivery monitor: External FHT Route of delivery: Episiotomy description: None Laceration Description: Perineal - 2nd Degree Delivery repair: vicryl Specimen: No Quantitative Blood Loss (ml): 200 Anesthesia type: Epidural Disposition: Floor Complications: No immediate complications Narrative: Patient pushed for a spontaneous vaginal delivery. The fetus was delivered atraumatically and placed on the maternal abdomen. The cord was clamped and cut after 1 minute of life. The cord was double clamped and cut and a segment of cord was collected for cord gases. Cord blood was collected for blood type and Coomb's testing. The placenta delivered spontaneously and was noted to be intact. The perineum was inspected and a second degree perineal laceration was noted. The laceration was repaired with 3-0 vicryl in a running fashion. A small amount of bleeding was noted from the uterus after delivery. 1000 mcg of misoprostol was placed OK. [place] Baby Date of : 05/04/24 Weeks of gestation at delivery: 39 Infant gender: Male presentation: vertex position: Right Occiput Anterior Placenta delivery description: Spontaneous Cord Vessel Description: 3 Vessels score one minute: 8 score five minutes: 9
[2024-05-04] MEDS: OXYTOCIN 30 UNITS/NS 500 ML 30 UNITS/500 ML BAG 125 UNITS IV CONT (16:45)
[2024-05-04] MEDS: METHYLERGONOVINE MALEATE 0.2 MG/ML VIAL IM (17:49)
[2024-05-04 19:09] LABS: Rapid Plasma Reagin Non-Reactive (NonReactive)
[2024-05-04] MEDS: IBUPROFEN 600 MG TABLET PO (19:48)
[2024-05-04] MEDS: ACETAMINOPHEN 325 MG TABLET 650 MG PO (19:49)
[2024-05-04] MEDS: WITCH HAZEL 40 PADS 1 PAD TOPICAL (19:51)
[2024-05-04] MEDS: LANOLIN (LANSINOH) 7.5 GM CREAM 1 APPLIC TOPICAL (19:51)
--- NOTE | 2024-05-04 22:22 | OBPPTRN ---
1926. Patient transferred to post room #277 via wheelchair, baby in crib next to mom. Support person present. Oriented to unit, room, information board, rooming in, admission packet and security measures. Patient verbalizes understanding.
[2024-05-05 04:00] VITALS: BP 103/69; PULSE 75; RESP 18; TEMP 36.8; O2SAT 100
[2024-05-05 04:28] LABS: Hematocrit 25.2 % (37.0-47.0); Hemoglobin 8.4 g/dL (12.0-15.0)
[2024-05-05 07:00] VITALS: BP 114/72; PULSE 68; RESP 16; TEMP 37.2; O2SAT 99
--- NOTE | 2024-05-05 07:45 | P.PNOB_ITS ---
OB - PN: Subj Subjective Date/time seen: 05/05/24 07:45 Patient comments: no complaints, pain well controlled and tolerating diet [place] feeding status: exclusively breast feeding Narrative: patient doing well this AM. No complaints. Pain is well controlled. She reports minimal bleeding. She is ambulating and voiding without difficulty. She is tolerating PO. She denies N/V, fever, chills. OB - PN: Obj Data Labs 05/05/24 03:49 Labs: Laboratory Results - last 24 hr 05/04/24 05/05/24 06:25 03:49 Hgb 8.4 L Hct 25.2 L RPR Non-reactive HIV 1&2 Ab/P24 Ag 4thGn Negative Blood Type AB Positive Antibody Screen Negative OB - PN A/P Plan day: 1 Plan: routine care Comments: patient doing well Patient had increased bleeding after delivery. Patient received Pitocin, rectal misoprostol, IM Methergine Bleeding has improved overnight H/H 8.02/19, discussed iron supplementation. patient request circumcision. Circumcision discussed at length. Risks, benefits, alternatives discussed. continue routine care Time Spent With Patient Time: Total time spent is greater than 50% in coordination of care (as documented) at patient's floor/unit and/or counseling patient: Time with patient: less than 15 minutes Review of Systems Review of Systems: All systems reviewed & are unremarkable except as noted in HPI and below Exam 2 Const: General: comfortable and no acute distress Resp: Effort & Inspection: normal respiratory effort Cardio: Rate: regular rate GI: GI Palp: Yes Soft to palpation and No Tenderness to palpation present (GI) Auscultation: normal bowel sounds Other: fundus firm and below umbilicus. Psych: Affect: normal affect
[2024-05-05] MEDS: POLYSACCHARIDE IRON COMPLEX 150 MG CAPSULE PO ×2 (08:51→17:50)
[2024-05-05] MEDS: IBUPROFEN 600 MG TABLET PO (08:52)
[2024-05-05] MEDS: MULTIVIT/MIN/PREN/FOL AC/IRON TABLET 1 TAB PO (08:52)
[2024-05-05] MEDS: DOCUSATE SODIUM 100 MG CAPSULE PO ×2 (08:52→17:50)
--- NOTE | 2024-05-05 10:24 | PC.NURSE ---
0920. Consulted with mom to assess how her BF is going. Mother verbalizes she is able to independently latch infant with appropriate positioning and alignment. She denies any nipple discomfort and is responsively . Infant is currently meeting outcomes for weight, output, jaundice, blood sugar and feeding frequencies of 8-12 times in 24 hours. Mother declines any additional assistance or education at this time. Mother is encouraged to call for assistance if her doesn?t latch, pain with latching, questions or concerns. Mother voiced understanding of information shared along with the mom/baby guide for an additional resource. Reported to the Primary RN.
--- NOTE | 2024-05-05 12:36 | PM.OBDSVD ---
DS: Admitting Diagnosis Discharge Date 05/05/24 Admitting Diagnosis intrauterine at term DS: Discharge Diagnosis Discharge Diagnosis (1) Normal vaginal delivery: Code(s): O80 - Encounter for full-term uncomplicated delivery Status: Acute OB - DS: Summary OB Procedures : None OB Procedures Intrapartum: Spontaneous Vag Delivery OB Procedures: : None Peripartum Data Laceration Description: Perineal - 2nd Degree Episiotomy description: None Status at Discharge Functional status at discharge: independent ambulation Overall status at discharge: patient is back to baseline Time Spent with Patient Time attestation: Total time spent providing and/or coordinating discharge services: Time spent: Less than 30 minutes Exam Const: General: comfortable and no acute distress Resp: Effort & Inspection: normal respiratory effort Auscultation: clear to auscultation bilaterally Cardio: Rate: regular rate GI: GI Palp: Yes Soft to palpation Auscultation: normal bowel sounds Other: Fundus firm below umbilicus Psych: Appearance: grossly normal Mental Status: mental status grossly normal Affect: normal affect DS: Data Data Completed and Pending Labs on day of discharge: Labs from last 24 hours 05/05/24 05/04/24 03:49 06:25 Hgb 8.4 L Hct 25.2 L RPR Non-reactive Discharge Plan Discharge Discharging Clinician: Marcus Tripp Patient Disposition: Home, Self-Care Activity: as tolerated and pelvic rest Diet: regular Patient Instructions: Antibiotic Form, Vaginal Delivery (DC) Stand Alone Forms: General Discharge Information Follow-up/Referrals: Marcus Tripp MD [Physician] - Discharge Medications: New acetaminophen 500 mg tablet 500 mg PO Q6H PRN (Reason: pain) Qty: 30 0RF ibuprofen 600 mg tablet 600 mg PO Q6H PRN (Reason: pain) Qty: 30 0RF Continued PNV cmb#95-ferrous fumarate-FA [] 28 mg iron- 800 mcg Tablet 1 tablet PO DAILY Date of admission: 05/04/24 06:02 Primary Care Provider: Twyla Lucas Admitting Provider: Marcus Tripp Attending physician on admission: Marcus Tripp Condition: Stable
[2024-05-05 15:15] VITALS: BP 121/83; PULSE 84; RESP 16; TEMP 36.5; O2SAT 100
[2024-05-06 08:46] VITALS: BP 117/79; PULSE 80; RESP 16; TEMP 36.5
== END 2024-05-05 19:10 | disposition home or self-care (01) | DRG 807 ==
LOC: ANHLDR 06:04 → ANHOB2 19:30
PROVIDERS: Admitting Provider Student in an Organized Health Care Education/Training Program; PCP Nurse Practitioner Adult Health; Visit Provider Student in an Organized Health Care Education/Training Program
DX: O70.1 Second degree perineal laceration during delivery (principal); Z37.0 Single live birth; Z3A.39 39 weeks gestation of pregnancy
CPT/HCPCS: 36415; 85014; 85018; 85025; 86592; 86703; 86850; 86900; 86901; A9270; G0432; J2210; J2590; J2795; J7120